=== PATIENT | male | born 1970 | race Asian ===

== ENCOUNTER 2020-03-09 13:10 | Emergency (ER) | payer MEDICARE, MEDICAID ==
[~2020-03-09] VITALS: Ht 172.7 cm; Wt 72.6 kg
[~2020-03-09 13:10] MED LIST: AMBIEN5 MG ORAL; ATIVAN1 MG ORAL; BUPROPION XL300 MG ORAL; CEPHALEXIN500 MG PO; GLUCOPHAGE500 MG ORAL; INVEGA3 MG PO; KLONOPIN1 MG ORAL; METFORMIN HCL500 M1 ORAL; REQUIP0.25 MG PO; SEROQUEL400 MG ORAL; TRAMADOL HCL50 MG ORAL
--- NOTE | 2020-03-09 13:56 | NUR ---
ED Nurse Note: pt was placed on OB room.
--- NOTE | 2020-03-09 13:57 | NUR ---
ED Nurse Note: Pt was brought in by ambulance d/t behavioral complaint; per EMS, pt was found on the street pt not manifesting any threats to himself nor danger to others. Pt denies taking any recent drugs nor alcohol; pt appears to be AOx3; with unkempt clothing but calm and cooperative to care. Pt denies hearing voices. Pt was placed on bed and gown; VSS, on RA, afebrile on triage. Safety measures met, will continue to monitor pt.
[2020-03-09 14:00] VITALS: BP 105/72
--- NOTE | 2020-03-09 14:20 | NUR ---
ED Nurse Note: ERPA at bedside.
--- NOTE | 2020-03-09 14:29 | Emergency Room Report ---
History of Present Illness General Chief Complaint: Behavioral Complaint Source: Patient (Amina Estrella) Present Illness HPI 50 YO male presents to the ED c/o being brought here because he was in the streets. Pt. reports bystander called 911 on him and is not sure why. Pt. reports He has hx of bipolar and is not sure what the name of his medications are. He denies SI/HI, depression, hallucinations or tarsha. Pt. states he has been to psychiatric facilities in the past, otherwise denies past medical hx. He denies CP, Cough, SOB, ERVIN, Dizziness, LOC, AMS, fevers or chills. Pt. reports he is homeless and does not have anywhere else to go other than being on the streets. Pt. denies pain. He denies any medical symptoms at this time. He reports he has stopped all drug and alcohol use for over a year now. He reports hx of DM but states his blood sugar is usually controlled. (Amina Estrella) Allergies: Coded Allergies: HALOPERIDOL (Unverified Allergy, Unknown, 09/23/12) HALOPERIDOL LACTATE (Unverified Allergy, Unknown, 09/23/12) COVID-19 Screening Contact w/high risk pt: No Experienced COVID-19 symptoms?: No COVID-19 Testing performed REVENUE MANAGER: No (Amina Estrella) Patient History Past Medical History: see triage record, psych hx - Bipolar Past Surgical History: none Pertinent Family History: none Reviewed Nursing Documentation: PMH: Agreed; PSxH: Agreed (Amina Estrella) Nursing Documentation-PMH Past Medical History: No History, Except For Hx Diabetes: Yes History Of Psychiatric Problem: Yes (Amina Estrella) Review of Systems All Other Systems: negative except mentioned in HPI (Amina Estrella) Physical Exam Vital Signs Date Time Temp Pulse Resp B/P (MAP) Pulse Ox O2 Delivery O2 Flow Rate FiO2 03/09/20 13:05 98.6 72 16 105/72 (83) 95 Room Air Sp02 EP Interpretation: reviewed, normal General Appearance: no apparent distress, alert, GCS 15, non-toxic Head: normocephalic, atraumatic Eyes: bilateral eye normal inspection, bilateral eye PERRL ENT: hearing grossly normal, normal voice Neck: full range of motion, no bony tend Respiratory: chest non-tender, lungs clear, normal breath sounds, no r espiratory distress, no accessory muscle use, no wheezing, speaking full sentences Cardiovascular #1: regular rate, rhythm, normal capillary refill Gastrointestinal: normal bowel sounds, non tender, soft Musculoskeletal: back normal, normal range of motion, gait/station normal, non- tender Neurologic: alert, motor strength/tone normal, oriented x3, sensory intact, responsive, speech normal, normal gait, grossly normal Psychiatric: judgement/insight normal, other - does not appear to be responding to internal stimuli, pt. is not having hallucinations. He has logical coherence of thoughts. Speaking full sentences and providing appropriate answers and rodriguez fficient amount of detail to questions. Skin: no rash, normal color, abrasion - Dorsum of the left hand (Amina Estrella) Medical Decision Making PA Attestation Dr. Hare Is my supervising Physician whom patient management has been discussed with. Homeless Attestation I, The treating provider, Amina GORE, has assessed and agrees that patient is medically stable for discharge to an outpatient disposition. (Amina Estrella) Diagnostic Impression: Primary Impression: Behavioral disorder Additional Impression: Hand abrasion, non-infected ER Course 50 YO male presents to the ED c/o being brought here because he was in the streets. Pt. reports bystander called 911 on him and is not sure why. Pt. reports He has hx of bipolar and is not sure what the name of his medications are. He denies SI/HI, depression, hallucinations or tarsha. Pt. states he has been to psychiatric facilities in the past, otherwise denies past medical hx. He denies CP, Cough, SOB, ERVIN, Dizziness, LOC, AMS, fevers or chills. Pt. reports he is homeless and does not have anywhere else to go other than being on the streets. Pt. denies pain. He denies any medical symptoms at this time. He reports he has stopped all drug and alcohol use for over a year now. Pt is hyperactive, and has a very anxious and restless affect. Ddx considered but are not limited to OD, SI/HI, psychosis, UTI, intoxication, abrasion of hand Vital signs: are WNL, pt. is afebrile H&PE are most consistent with behavioral/mental health issue ORDERS: -CBC, CMP: WNL/Unremarkable -UA: negative for infection see results attached. -UDS: Negative except for THC -Salicylates and Acetaminophen - no acute intoxication. -Serum ETOH: no acute intoxication ED INTERVENTIONS: - None required at this time. - Pt. given two sandwiches and several juices. DISPOSITION: Patient is not currently demonstrating a danger to himself or others. He is not exhibiting signs or symptoms of acute psychosis. Patient is calm and cooperative. It appears that this patient's primary problem is being homeless and he will receive our homeless discharge procedure which includes homeless resources, food, a clean pair of clothes as well as paid transportation to facility or correction of choice. Pt. is stable for close outpatient follow up. D/w pt. to return to the ED promptly with any new symptoms or medi elroy/psychiatric concerns. Pt. also given [facility] resource information. Pt. verbalizes his understanding and agreement with this treatment plan and discharge protocols. Labs Test 03/09/20 14:00 White Blood Count 6.4 K/UL (4.8-10.8) Red Blood Count 5.23 M/UL (4.70-6.10) Hemoglobin 15.5 G/DL (14.2-18.0) Hematocrit 43.7 % (42.0-52.0) Mean Corpuscular Volume 83 FL (80-99) Mean Corpuscular Hemoglobin 29.7 PG (27.0-31.0) Mean Corpuscular Hemoglobin Concent 35.5 G/DL (32.0-36.0) Red Cell Distribution Width 11.3 % (11.6-14.8) Platelet Count 375 K/UL (150-450) Mean Platelet Volume 5.7 FL (6.5-10.1) Neutrophils (%) (Auto) 58.8 % (45.0-75.0) Lymphocytes (%) (Auto) 25.5 % (20.0-45.0) Monocytes (%) (Auto) 8.2 % (1.0-10.0) Eosinophils (%) (Auto) 4.5 % (0.0-3.0) Basophils (%) (Auto) 2.9 % (0.0-2.0) Sodium Level 140 MMOL/L (136-145) Potassium Level 4.2 MMOL/L (3.5-5.1) Chloride Level 104 MMOL/L (98-107) Carbon Dioxide Level 30 MMOL/L (21-32) Anion Gap 6 mmol/L (5-15) Blood Urea Nitrogen 14 mg/dL (7-18) Creatinine 0.9 MG/DL (0.55-1.30) Estimat Glomerular Filtration Rate > 60 mL/min (>60) Glucose Level 152 MG/DL (74-106) Calcium Level 9.0 MG/DL (8.5-10.1) Total Bilirubin 0.5 MG/DL (0.2-1.0) Aspartate Amino Transf (AST/SGOT) 18 U/L (15-37) Alanine Aminotransferase (ALT/SGPT) 36 U/L (12-78) Alkaline Phosphatase 67 U/L (46-116) Total Protein 6.3 G/DL (6.4-8.2) Albumin 3.7 G/DL (3.4-5.0) Globulin 2.6 g/dL Albumin/Globulin Ratio 1.4 (1.0-2.7) Salicylates Level 4.0 ug/mL (2.8-20) Urine Opiates Screen Negative (NEGATIVE) Acetaminophen Level < 2 MCG/ML (10-30) Urine Barbiturates Screen Negative (NEGATIVE) Phencyclidine (PCP) Screen Negative (NEGATIVE) Urine Amphetamines Screen Negative (NEGATIVE) Urine Benzodiazepines Screen Negative (NEGATIVE) Urine Cocaine Screen Negative (NEGATIVE) Urine Marijuana (THC) Screen Positive (NEGATIVE) Serum Alcohol < 3 mg/dL (Amina Estrella) Last Vital Signs Date Time Temp Pulse Resp B/P (MAP) Pulse Ox O2 Delivery O2 Flow Rate FiO2 03/09/20 14:00 72 16 Room Air 03/09/20 14:00 98.6 105/72 95 Status: improved (Amina Estrella) Disposition: HOME, SELF-CARE Condition: Stable Referrals: [facility]io Riggins [facility] + [facility] Patient Instructions: Abrasion, [id number], Bipolar Disorder Additional Instructions: Take medications as directed. Follow up with a Mental Health Specialist/ Psychiatrist in 3 days, even if your symptoms have resolved. --Please review [facility] resource information provided Return sooner to ED if new symptoms occur, or current symptoms become worse. - Please note that this Emergency Department Report was dictated using [employer] mechanic technology software, occasionally this can lead to erroneous entry secondary to interpretation by the dictation equipment. Amina Estrella Mar 09, 2020 14:29 Jose Hare MD Mar 13, 2020 07:27
[2020-03-09 14:40] LABS: BASOPHILS % (AUTO) 2.9 % (0.0-2.0); EOSINOPHILS % (AUTO) 4.5 % (0.0-3.0); HEMATOCRIT 43.7 % (42.0-52.0); HEMOGLOBIN 15.5 G/DL (14.2-18.0); LYMPHOCYTES % (AUTO) 25.5 % (20.0-45.0); MEAN CORPUSCULAR VOLUME 83 FL (80-99); MONOCYTES % (AUTO) 8.2 % (1.0-10.0); NEUTROPHILS % (AUTO) 58.8 % (45.0-75.0); PLATELET COUNT 375 K/UL (150-450); RED BLOOD COUNT 5.23 M/UL (4.70-6.10); RED CELL DISTRIBUTION WIDTH 11.3 % (11.6-14.8); WHITE BLOOD COUNT 6.4 K/UL (4.8-10.8)
[2020-03-09 14:53] LABS: ANION GAP 6 mmol/L (5-15); BLOOD UREA NITROGEN 14 mg/dL (7-18); CARBON DIOXIDE 30 MMOL/L (21-32); CHLORIDE 104 MMOL/L (98-107); CREATININE 0.9 MG/DL (0.55-1.30); POTASSIUM 4.2 MMOL/L (3.5-5.1); SODIUM 140 MMOL/L (136-145)
[2020-03-09 14:57] LABS: ALANINE AMINOTRANSFERASE 36 U/L (12-78); ALBUMIN 3.7 G/DL (3.4-5.0); ALBUMIN/GLOBULIN RATIO 1.4 (1.0-2.7); ALKALINE PHOSPHATASE 67 U/L (46-116); ASPARTATE AMINO TRANSFERASE 18 U/L (15-37); BILIRUBIN,TOTAL 0.5 MG/DL (0.2-1.0)
[2020-03-09] MEDS ORDERED: Bacitracin Oint UD TOPIC ONE (17:00)
[2020-03-09 17:25] VITALS: BP 110/75
--- NOTE | 2020-03-09 17:25 | NUR ---
Homeless Discharge: Patient is being discharged from medical care. Awake, alert and oriented x4. After care instructions, including referral to community resources were given. Patient verbalized understanding of After care instructions; at this time patient does not request medications, equipment or placement. Patient signed patient consent in the medical record for patient destination upon discharge. All medical devices such as IV and ID band were removed. Patient ambulated out with all personal belongings with steady gait.
== END 2020-03-09 17:25 | disposition home or self-care (01) ==
LOC: EDBD 13:10 → MERGE 14:25 → EMR 14:25
DX: F91.9 Conduct disorder, unspecified (principal); S60.512A Abrasion of left hand, initial encounter; F31.9 Bipolar disorder, unspecified; E11.9 Type 2 diabetes mellitus without complications; Z59.0 Homelessness; X58.XXXA Exposure to other specified factors, initial encounter; Y92.9 Unspecified place or not applicable
CPT/HCPCS: 36415; 80053; 80307; 85025; 99283; G0480